=== PATIENT | male | born 1935 | race Caucasian/White ===

== ENCOUNTER 2019-05-04 08:04 | Day surgery (SDC) | payer OTHER ==
[~2019-05-04] VITALS: Ht 172.7 cm; Wt 76.0 kg
--- NOTE | ~2019-05-04 | O ---
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 PROCEDURE: Right lower lid ectropion repair with transconjunctival right lower lid and cheek lift. SURGEON: Diony Lamb MD. MEDICAL NUMERICAL CONTROL OPERATOR: None. ANESTHESIA: MAC. COMPLICATIONS: None. 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 He presents today for a right lower lid ectropion repair combined with transconjunctival lower lid and cheek procedure in order to attempt to improve his ocular surface milieu. He has a prior history of having had a conjunctival resection for a neoplasm, which is thought to likely be not the same process in his lid. If any tissue was to have been removed today, it would have been sent for pathologic analysis, but no tissue was removed. Informed consent was obtained to include but not limited to the potential risk for loss of vision, bleeding, infection, failure to improve the problem, the potential need for further surgery or treatment. DESCRIPTION OF PROCEDURE: The patient was taken to the operating room where 2% Xylocaine with epinephrine mixed with equal parts of 0.75% Marcaine with Wydase was administered transcutaneously and transconjunctivally to the right lower [address] [address] OPERATIVE REPORT Name: LUILAMIN Room #: 150-10 [facility]..#: [id number] Admission: 05/04/19 Attend Phys: Diony Lamb MD Discharge: Date of : 39 Report #: [id number] lid, the right lateral canthus, the right medial canthus, the right cheek and the right infratemporal fossa. The patient was subsequently prepped and draped in the usual sterile fashion. A Ellie clamp was then used to clamp the right lateral canthus. A sharp canthotomy and cantholysis was then performed and hemostasis was subsequently re-achieved with diligent monopolar cautery. A transconjunctival incision was then made across the width of the lid. This released some tissue to allow to be drawn back into the inferior orbit which appeared to be part of the reason that his lid was being everted to start off with. There was no pigment in this tissue and it did not appear to be neoplastic. Hemostasis was then re-achieved. The dissection was then carried out in the premalar space and the lower lid and cheek tissues were then elevated. They were resuspended from periosteum with interrupted 5-0 Prolene sutures. The lower lid and cheek tissues elevated well. A tarsal strip was then prepared laterally removing the lash bearing portion of the redundant lid margin and the redundant tarsal plate. Hemostasis was then re-achieved. The tarsal strip was then secured to the internal portion of the lateral orbital tubercle thus completing the ectropion repair. The final closure of the skin and subcutaneous structures were accomplished with 6-0 plain gut sutures. The wounds were then cleaned and dressed with erythromycin ophthalmic ointment. The patient subsequently transported to the recovery area having tolerated the procedures well with no anesthetic or operative complications being noted. By: [id number] Diony Lamb MD /nt
[~2019-05-04 08:04] MED LIST: ELIQUIS5 MG PO; FLOMAX0.4 MG PO; LASIX 20 MG TAB20 MG PO; LEXAPRO5 MG PO; LIDODERM1 EACH TOP; LIPITOR40 MG PO; LISINOPRIL5 MG PO; MELOXICAM7.5 MG PO; MIRALAX17 GM PO; NORCO 5-325 TA1 EAC1 PO; POLYMYXIN B/TMP10 ML OPHTHALMIC; POTASSIUM20 PO; PROSCAR 5MG TABL5 M1 PO; SPIRONOLACTONE25 MG PO; TOPROL XL50 MG PO; TRAMADOL 50 MG50 MG PO; TYLENOL325 MG PO; VITAMIN D325 MC1 PO
[2019-05-04 09:13] VITALS: BP 100/49
[2019-05-04 09:53] LABS: CALCIUM 8.8 mg/dL (8.5-10.1); CREATININE 0.9 mg/dL (0.7-1.3); POTASSIUM 4.3 mmol/L (3.5-5.1)
--- NOTE | 2019-05-05 09:30 | EKG ---
[facility] [place] [address] ELECTROCARDIOGRAM REPORT Name: LAMIN POE Room #: DEP [facility].#: [id number] Admission: 05/04/19 Attend Phys: Diony Lamb MD Discharge: 05/04/19 Date of : 37 Report #: [id number] THIS REPORT FOR: cc: [facility] - No family physician/PCP FAM - No family physician/PCP Noel Valentin MD [facility] ~ THIS REPORT FOR: //name// [facility] Test Date: 2019-05-04 Test Time: 08:36:11 Pat Name: LAMIN POE Department: Room: 150 10 Gender: [employer] Supervisor: erick : 1935 Requested By: Diony Lamb Order Number: [id number] MD: Noel Valentin Measurements Intervals [place] Rate: 74 P: [place]: QRS: 40 QRSD: 107 T: 239 QT: 390 QTc: 433 Interpretive Statements Atrial fibrillation Nonspecific T wave abnormality No previous ECG available for comparison Electronically Signed On 05-05-2019 9:29:03 DELIVERY MANAGER by Noel Valentin [email or web address] <ELECTRONICALLY SIGNED> By: Noel Valentin MD, [facility] 05/05/19928 5 5 Noel Valentin MD, [facility] /EPI
== END 2019-05-04 11:04 | disposition home or self-care (01) ==
LOC: EDBD → TBA 08:04 → OR 08:04 → TBA 08:23 → OR 11:04
PROVIDERS: Ophthalmology
DX: H02.102 Unspecified ectropion of right lower eyelid (principal); H02.532 Eyelid retraction right lower eyelid; H02.202 Unspecified lagophthalmos right lower eyelid; H18.9 Unspecified disorder of cornea; I10 Essential (primary) hypertension; I48.91 Unspecified atrial fibrillation; E78.00 Pure hypercholesterolemia, unspecified; F32.9 Major depressive disorder, single episode, unspecified; F41.9 Anxiety disorder, unspecified; G47.30 Sleep apnea, unspecified; N40.0 Benign prostatic hyperplasia without lower urinary tract symptoms; Z86.73 Personal history of transient ischemic attack (TIA), and cerebral infarction without residual deficits; Z98.890 Other specified postprocedural states; Z79.899 Other long term (current) drug therapy; Z79.01 Long term (current) use of anticoagulants; Z85.840 Personal history of malignant neoplasm of eye
CPT/HCPCS: 50010; 50101; 50386; 50398; 51636; 56527; 56531; 70005

== ENCOUNTER → 2020-02-22 | Day surgery (SDC) | payer MEDICARE, OTHER ==
--- NOTE | 2020-02-21 13:42 | NUR ---
NURSE AT [facility] REPORTED THAT PATIENT COMPLAINED OF BURNING AND HEMATURIA WITH MESA OVER THE WEEKEND, 02/18/20. MESA CATHETER WAS CHANGED AND URINE SPECIMEN SENT. PATIENT AFEBRILE. URINE SPECIMEN FAXED TO DR ARREOLA AND DR ARREOLA INSTRUCTED FACILITY TO START PATIENT ON TYPICAL ANTIBIOTIC FOR UTI AND TO HAVE PATIENT TAKE A DOSE TODAY AND TOMORROW BEFORE SURGERY. FACILITY GOING TO TALK WITH THEIR NURSE PRACTIONER TO GET ORDER FOR APPROPRIATE ANTIBIOTIC.
[~2020-02-22] VITALS: Ht 172.7 cm; Wt 83.9 kg
[~2020-02-22] MED LIST changes: +FERRETTS325 MG PO; +GAS RELIEF80 MG PO; +MULTI VITAMIN1 EACH PO; +PROTONIX40 M2 PO; +TOPROL XL25 MG PO; +WELLBUTRIN SR100 MG PO
[2020-02-22 10:52] VITALS: BP 128/65
--- NOTE | 2020-02-26 06:37 | O ---
[facility] [place] [address] OPERATIVE REPORT Name: LAMIN POE Room #: REG [facility]#: [id number] Admission: 02/22/20 Attend Phys: Diony Lamb MD Discharge: Date of : 37 Report #: [id number] THIS REPORT FOR: cc: FAM - Family physician unknown FAM - Family physician unknown Diony Lamb MD ~ DATE OF SERVICE: 02/22/2020 FILM CRITIC: None. PREOPERATIVE DIAGNOSIS: Unilateral right lower lid entropion. POSTOPERATIVE DIAGNOSIS: Unilateral right lower lid entropion. OPERATION PERFORMED: Unilateral right lower lid entropion repair. ANESTHESIA: Local with IV sedation. COMPLICATIONS: None. INDICATIONS FOR PROCEDURE: This patient has unilateral lower lid entropion with chronic irritation and discharge. The current procedure is being undertaken in order to improve the patient's level of comfort and visual function. Informed consent was obtained to include but not limited to the loss of vision, bleeding, infection, scarring, failure to improve the problem and need for further surgery. DESCRIPTION OF OPERATION: The patient was taken to the operating room, where 2% Xylocaine with epinephrine mixed with equal parts of 0.75% Marcaine with Wydase was administered transcutaneously and transconjunctivally to the lower lid and lateral canthal area. The patient was then prepped and draped in the usual sterile fashion. A Ellie clamp was used to clamp the lateral canthus, following which a sharp canthotomy and cantholysis were performed. Hemostasis was achieved with a monopolar cautery, as it was throughout the case. A tarsal strip was prepared laterally, removing the lash-bearing portion of the redundant lid margin and the redundant tarsal plate. A transconjunctival dissection was then undertaken just inferior to the lower border of the tarsal plate. The lower lid retractors were disinserted from the inferior border of the tarsal plate. The lower lid retractors were then advanced and reattached to the anterior surface of the tarsal plate with mattress 5-0 chromic sutures passed transconjunctivally and secured in the infraciliary margin. The tarsal strip was then secured laterally with 2 interrupted 5-0 Prolene sutures. The subcutaneous structures and the skin were then closed with multiple interrupted 6-0 plain gut sutures so the lateral canthal angle was sharply reformed. The [address] [address] OPERATIVE REPORT Name: LUILAMIN S Room #: REG [facility]#: [id number] Admission: 02/22/20 Attend Phys: Diony Lamb MD Discharge: Date of : 37 Report #: [id number] wound was then cleaned and dressed with ophthalmic antibiotic ointment. The patient was then transported to the recovery area having tolerated the procedure well with no anesthetic or operative complications being noted. <ELECTRONICALLY SIGNED> By: Diony Lamb MD 02/26/20 0637 1245 1259 MD chichi Merritt
--- NOTE | 2020-02-26 06:37 | O ---
[facility] [place] [address] OPERATIVE REPORT Name: LAMIN POE Room #: REG [facility]#: [id number] Admission: 02/22/20 Attend Phys: Diony Lamb MD Discharge: Date of : 37 Report #: [id number] THIS REPORT FOR: cc: FAM - Family physician unknown FAM - Family physician unknown Diony Lamb MD ~ DATE OF SERVICE: 02/22/2020 SURGEON: Diony Lamb MD WET ROASTER: None. PREOPERATIVE DIAGNOSIS: Right lower lid entropion. POSTOPERATIVE DIAGNOSIS: Right lower lid entropion. OPERATION PERFORMED: Right lower lid entropion repair. ANESTHESIA: Local with IV sedation. COMPLICATIONS: None. INDICATIONS FOR PROCEDURE: This patient has right lower lid entropion with chronic irritation and discharge. The current procedures are being undertaken in order to improve the patient's level of comfort and visual function. Informed consent was obtained to include but not limited to the loss of vision, bleeding, infection, scarring, failure to improve the problem and need for further surgery. DESCRIPTION OF OPERATION: The patient was taken to the operating room, where 2% Xylocaine with epinephrine mixed with equal parts of 0.75% Marcaine with Wydase was administered transcutaneously and transconjunctivally to each lower lid and lateral canthal area. The patient was then prepped and draped in the usual sterile fashion. A Ellie clamp was used to clamp the left lateral canthus, following which a sharp canthotomy and cantholysis were performed. Hemostasis was achieved with a monopolar cautery, as it was throughout the case. A tarsal strip was prepared laterally, removing the lash bearing portion of the redundant lid margin and the redundant tarsal plate. A transconjunctival dissection was then undertaken just inferior to the lower border of the tarsal plate. The lower lid retractors were disinserted from the inferior border of the tarsal plate. The lower lid retractors were then advanced and reattached to the anterior surface of the tarsal plate with mattress 5-0 chromic sutures passed transconjunctivally and secured in the infraciliary margin. The tarsal strip was then secured laterally with 2 interrupted 5-0 Prolene sutures. The [facility] [address] [place] [address] OPERATIVE REPORT Name: LAMIN POE Room #: REG [facility]#: [id number] Admission: 02/22/20 Attend Phys: Diony Lamb MD Discharge: Date of : 39 Report #: [id number] subcutaneous structures and the skin were then closed with multiple interrupted 6-0 plain gut sutures so the lateral canthal angle was sharply reformed. The wounds were then cleaned and dressed with ophthalmic antibiotic ointment. The patient was then transported to the recovery area, having tolerated the procedure well with no anesthetic or operative complications being noted. <ELECTRONICALLY SIGNED> By: Diony Lamb MD 02/26/20 0637 1243 1254 MD chichi Merritt
== END | disposition home or self-care (01) ==
LOC: OR 02-15 08:04
PROVIDERS: ATTEND Ophthalmology
DX: H02.002 Unspecified entropion of right lower eyelid (principal); I11.0 Hypertensive heart disease with heart failure; I50.9 Heart failure, unspecified; E78.5 Hyperlipidemia, unspecified; E78.00 Pure hypercholesterolemia, unspecified; I48.91 Unspecified atrial fibrillation; F32.9 Major depressive disorder, single episode, unspecified; F41.9 Anxiety disorder, unspecified; G47.30 Sleep apnea, unspecified; D64.9 Anemia, unspecified; N40.0 Benign prostatic hyperplasia without lower urinary tract symptoms; Z98.890 Other specified postprocedural states; Z79.899 Other long term (current) drug therapy; Z79.01 Long term (current) use of anticoagulants; Z86.73 Personal history of transient ischemic attack (TIA), and cerebral infarction without residual deficits
CPT/HCPCS: 50010; 50101; 50386; 50398; 51636; 56527; 56528; 56531; 62110; 62850; 70005